=== PATIENT | male | born 1990 ===

== ENCOUNTER 2017-07-25 19:51 | Emergency (ER) | payer SELFPAY ==
[2017-07-25 19:51] VITALS: BMI 22.6
[2017-07-25 20:39] VITALS: BP 127/81; PULSE 77; RESP 16; TEMP 97.9; O2SAT 100
[2017-07-25] MEDS ORDERED: Oxycodone/Acetaminophen 5/325 mg Tab PO STA (21:14)
[2017-07-25] MEDS ORDERED: Oxycodone/Acetaminophen 5/325 mg Tab ONE (21:21)
--- NOTE | 2017-07-25 23:12 | CT ---
EXAM: CT Right Upper Extremity Without Intravenous Contrast, Wrist CLINICAL HISTORY: 26 years old, male; Injury or trauma; Fall; Initial encounter; Fracture, traumatic injury; Closed fracture; Wrist; Right; Bone fracture not specified; Additional info: Please eval wrist FX TECHNIQUE: Axial computed tomography images of the right wrist without intravenous contrast. All CT scans at this facility use one or more dose reduction techniques, viz.: automated exposure control; ma/kV adjustment per patient size (including targeted exams where dose is matched to indication; i.e. head); or iterative reconstruction technique. Coronal and sagittal reformatted images were created and reviewed. COMPARISON: No relevant prior studies available. FINDINGS: Bones/joints: A comminuted fracture of the distal radius is identified. This extends into the articular surface, and demonstrates moderate impaction. The carpal bones are intact, without acute fracture. Acute fracture of the ulnar styloid is present. Soft tissues: Overlying soft tissue swelling, as expected. IMPRESSION: Comminuted fracture of the distal radius extending into the articular surface with moderate impaction and overlying soft tissue swelling.
--- NOTE | 2017-07-26 00:22 | C.PDOC ---
History Of Present Illness 26 y/o male c/o pain to the right wrist s/p mechanical fall [employer] from skateboard. . Patient notes he fell with his hand outstretched off his skateboard. Patient took 400mg of Ibuprofen with no relief. Patient denies numbness, tingling, or weakness to the extremity. No head injury or LOC. denies neck pain. no left ar m or hand pain. Time Seen by Provider: 07/25/17 21:05 Chief Complaint (Nursing): Finger,Hand,&Wrist History Per: Patient History/Exam Limitations: no limitations Onset/Duration Of Symptoms: Mins Current Symptoms Are (Timing): Still Present Quality: "Pain" Severity: Mild Recent travel outside of the [place]: No Additional History Per: Patient Past Medical History Reviewed: Historical Data, Nursing Documentation, Vital Signs Vital Signs: Last Vital Signs Temp 97.9 F 07/25/17 20:34 Pulse 77 07/25/17 20:34 Resp 16 07/25/17 20:34 BP 127/81 07/25/17 20:34 Pulse Ox 100 07/27/17 03:13 - Medical History PMH: Asthma Denies: Chronic Kidney Disease Family History: States: Unknown Family Hx - Social History Hx Alcohol Use: Yes Hx Substance Use: No - Immunization History Hx Tetanus Toxoid Vaccination: No Review Of Systems Constitutional: Negative for: Other (Head injury) Musculoskeletal: Positive for: Hand Pain (right wrist) Neurological: Negative for: Weakness, Numbness, Other (LOC) Physical Exam - Physical Exam Appears: Non-toxic, No Acute Distress Skin: Warm, Dry Head: Atraumatic, Normacephalic Eye(s): bilateral: Normal Inspection, PERRL, EOMI Neck: Normal ROM, No Midline Cervical Tenderness Extremity: Tenderness (right distal forearm and wrist, left arm non tender with normal rom. ), Capillary Refill (<2secs), Deformity (right wrist), Swelling (right wrist) Pulses: Left Radial: Normal, Right Radial: Normal Neurological/Psych: Oriented x3, Normal Speech, Normal Cognition, Normal Motor, Normal Sensation ED Course And Treatment O2 Sat by Pulse Oximetry: 100 (RA) Pulse Ox Interpretation: Normal Orthopedic Time Performed: 23:40 Time Out: Side verified Procedure: Splint Type: Reverse (sugar tong) Location: Right, Arm Consent obtained: Verbal Performed by: Mid-level Provider (done by cp, checked by me) Diagnosis: Fracture Type: Comminuted Location: Right, Distal Bone: Radius Capillary refill: Normal Distal Sensation: Normal Distal Motor Function: Normal Capillary Refill: Normal Compartment: Normal Distal Sensation: Normal Distal Motor Function: Normal Patient tolerated procedure: Well Medical Decision Making Medical Decision Making: discussed with Dr Vizcarra around 945 pm; requests ct scan wrist, splint and sling ; he will contact patient tomorrow to arrange for follow up. Disposition Discussed With : Carmita Ramírez Doctor Will See Patient In The: Office Counseled Patient/Family Regarding: Studies Performed, Diagnosis, Need For Followup, Rx Given - Disposition Referrals: Carmita Ramírez MD [Staff Provider] - Disposition: HOME/ ROUTINE Disposition Time: 00:30 Condition: IMPROVED Additional Instructions: Keep arm in splint and sling and elevated- put pillows under arm in bed tonight. Do not get splint wet. Dr Ramírez should be in touch with you tomorrow ; or call his office (see number given) to arrange for follow up. Take ibuprofen 600 mg by mouth every 6 hours (with food) for pain. Take Percocet for severe pain. one pill every 4-6 hours. Return to ER for any worse symptoms. Prescriptions: Ibuprofen [Motrin] 600 mg PO TID #30 tab oxyCODONE/Acetaminophen [Percocet 5/325 mg Tab] 1 ea PO Q6 #8 tab Instructions: Wrist Fracture in Adults (ED), Splint Care (ED) Forms: [employer] (Anguillan), Work Excuse - Clinical Impression Clinical Impression: Distal radius fracture, right - Scribe Statement The provider has reviewed the documentation as recorded by the Sincereibroyal rene All medical record entries made by the Scribe were at my direction and personally dictated by me. I have reviewed the chart and agree that the record accurately reflects my personal performance of the history, physical exam, medical decision making, and the department course for this patient. I have also personally directed, reviewed, and agree with the discharge instructions and disposition.
[2017-07-26] MEDS ORDERED: Oxycodone/Acetaminophen 5/325 mg Tab PO STA (00:24)
[2017-07-26] MEDS ORDERED: Oxycodone/Acetaminophen 5/325 mg Tab ONE (00:29)
--- NOTE | 2017-07-26 08:46 | RAD ---
PROCEDURE: Right Wrist Radiographs. HISTORY: fall with deformity COMPARISON: None. FINDINGS: BONES: Comminuted intra-articular distal radial fracture with displacement of volar fragments. Minimally displaced ulnar styloid process fracture. JOINTS: Radiocarpal articulation maintained. Normal carpal alignment is maintained. SOFT TISSUES: Normal. OTHER FINDINGS: None. IMPRESSION: Comminuted displaced intra-articular distal radial fracture. Mildly displaced ulnar styloid process fracture.
== END 2017-07-26 00:45 | disposition home or self-care (01) ==
LOC: C.ER 19:51
DX: S52.591A Other fractures of lower end of right radius, initial encounter for closed fracture (principal); V00.131A Fall from skateboard, initial encounter; Y93.51 Activity, roller skating (inline) and skateboarding

== ENCOUNTER 2019-01-31 06:56 | Observation (INO) | payer MEDICAID, OTHER ==
[2019-01-31 06:56] VITALS: BMI 22.6
[2019-01-31] MEDS ORDERED: Magnesium Sulfate 1 gm in D5W 2 GM/200 ML BAG IVPB ONE (07:10)
[2019-01-31] MEDS ORDERED: Albuterol-Ipratrop 3 mg / 0.5 (3 ml) UD ONE ×4 (07:20→13:55)
[2019-01-31] MEDS ORDERED: Sodium Chloride 0.9% 1,000 ML IV ONE (07:29)
[2019-01-31 07:54] LABS: BASO # 0.1 K/uL (0.0-0.2); BASO % 0.8 % (0.0-2.0); EOS # 0.5 K/uL (0.0-0.7); EOS % 4.9 % (0.0-4.0); LYMPH # 5.5 K/uL (1.0-4.3); LYMPH % 56.8 % (20.0-40.0); MEAN CELL VOLUME 91.4 fL (80.0-94.0); MEAN CORPUSCULAR HEMOGLOBIN 31.3 pg (27.0-31.0); MEAN CORPUSCULAR HGB CONC 34.2 g/dL (33.0-37.0); MEAN PLATELET VOLUME 8.8 fL (7.2-11.7); MONO # 0.7 K/uL (0.0-0.8); MONO % 6.9 % (0.0-10.0); NEUT % 30.6 % (50.0-75.0); NRBC % 0.1 % (0.0-2.0); RBC 5.12 Mil/uL (4.40-5.90); RED CELL DISTRIBUTION WIDTH 12.8 % (11.5-14.5); WHITE BLOOD COUNT 9.7 K/uL (4.8-10.8)
--- NOTE | 2019-01-31 07:55 | C.PDOC ---
History Of Present Illness 28 y/o male,w/PMhx of asthma, presents to the ER for evaluation of shortness of breath. Patient was not able to talk initially when he arrived in ER. Patient was treated with Solu-Medrol and Magnesium before I assessed him. During my assessment, patient states that he has been sneezing and coughing for the past 2 weeks and he has been using inhaler more frequently for for the past 1 week. He notes that he ran out of his inhaler 1 hour [employer]. He was admitted in a hospital in [facility] 2 weeks ago when he went to see his mother.Denies having syncope,fever,chills,CP, nausea, vomiting, and hx of intubations. Chief Complaint (Nursing): Respiratory Distress History Per: Patient History/Exam Limitations: no limitations Onset/Duration Of Symptoms: Days Current Symptoms Are (Timing): Still Present Severity: Moderate Past Medical History Reviewed: Historical Data, Nursing Documentation, Vital Signs Vital Signs: Last Vital Signs Temp 97.1 F L 01/31/19 07:16 Pulse 93 H 01/31/19 07:16 Resp 27 H 01/31/19 07:16 BP 152/100 H 01/31/19 07:16 Pulse Ox 93 L 01/31/19 07:16 Primary Care Provider: FAMILY PROVIDER,NO - Medical History PMH: Asthma Denies: Chronic Kidney Disease Other Surgeries: Hx of surgeries Family History: States: No Known Family Hx - Social History Hx Alcohol Use: Yes Hx Substance Use: No - Immunization History Hx Tetanus Toxoid Vaccination: No Hx Influenza Vaccination: No Hx Pneumococcal Vaccination: No Review Of Systems Except As Marked, All Systems Reviewed And Found Negative. Constitutional: Negative for: Fever, Chills Cardiovascular: Negative for: Chest Pain Respiratory: Positive for: Cough, Shortness of Breath Gastrointestinal: Negative for: Nausea, Vomiting Physical Exam - Physical Exam Appears: Non-toxic, No Acute Distress, Other (speaking in full sentences) Skin: Normal Color, Warm, Dry Head: Atraumatic, Normacephalic Eye(s): bilateral: Normal Inspection Nose: Normal Oral Mucosa: Moist Throat: Normal, No Erythema, No Exudate Neck: Supple Chest: Symmetrical Cardiovascular: Rhythm Regular (with tachycardia) Respiratory: No Rales, No Rhonchi, Wheezing (diffuse expiratory wheezing), Other (good air entry) Gastrointestinal/Abdominal: Normal Exam, Soft, No Tenderness, No Guarding, No Rebound Neurological/Psych: Oriented x3, Normal Speech ED Course And Treatment - Laboratory Results Result Diagrams: 01/31/19 07:46 01/31/19 07:46 ECG: Interpreted By Me, Viewed By Me ECG Rhythm: Sinus Rhythm Interpretation Of ECG: NSR with normal intervals and normal axises Rate From EC O2 Sat by Pulse Oximetry: 93 (RA) Pulse Ox Interpretation: Other (Low) Medical Decision Making Medical Decision Making: Plan: --Labs --CXR --Duoneb --IV Fluids --Solu-Medrol IV --Magnesium Sulfate IV Updates: On re-evaluation, patient states that he is feeling better. On re-examination, patient still has diffuse wheezing. Disposition Counseled Patient/Family Regarding: Studies Performed, Diagnosis - Disposition Disposition: HOSPITALIZED Disposition Time: 10:08 Condition: FAIR Forms: [employer] [facility] (Omani) - Clinical Impression Clinical Impression: Exacerbation of asthma - Scribe Statement The provider has reviewed the documentation as recorded by the Ankita Valencia Provider Attestation: All medical record entries made by the Sincereibroyal were at my direction and personally dictated by me. I have reviewed the chart and agree that the record accurately reflects my personal performance of the history, physical exam, medical decision making, and the department course for this patient. I have also personally directed, reviewed, and agree with the discharge instructions and disposition.
[2019-01-31] MEDS: Albuterol-Ipratrop 3 mg / 0.5 (3 ml) UD IH SCH ×5 (08:00→12:02)
[2019-01-31] MEDS: Magnesium Sulfate 1 gm in D5W 1 GM/100 ML BAG IVPB SCH ×2 (08:04→08:05)
[2019-01-31 08:05] LABS: ALB/GLOB RATIO 1.4 (1.0-2.1); ALBUMIN 4.8 g/dL (3.5-5.0); BLOOD UREA NITROGEN 20 mg/dL (9-20); CALCIUM 8.9 mg/dl (8.6-10.4); GFR NON-AFRICAN AMERICAN > 60
[2019-01-31 08:19] LABS: ALT/SGPT 56 U/L (21-72); AST/SGOT 51 U/L (17-59)
--- NOTE | 2019-01-31 08:45 | RAD ---
Chest x-ray single frontal view HISTORY: Shortness of breath. Comparison: None available. Findings: No focal infiltrate or effusion. Heart size within normal limits. Impression: No focal infiltrate or effusion.
[2019-01-31] MEDS ORDERED: Sodium Chloride 0.9% 1,000 ML ONE (09:24)
[2019-01-31] MEDS ORDERED: Albuterol-Ipratrop 3 mg / 0.5 (3 ml) UD INH PRN (11:56)
[2019-01-31] MEDS ORDERED: Albuterol-Ipratrop 3 mg / 0.5 (3 ml) UD INH SCH (12:15)
--- NOTE | 2019-01-31 13:24 | CP.PCM.HP ---
History of Present Illness - History of Present Illness History of Present Illness: PGY-1 Medicine H&P for Dr. Krishnan CC: Shortness of breath HPI: Patient is a 28 year old male with a past medical history of asthma and season allergies who presents to the ED with shortness of breath. Patient states he spontaneously became short of breath this morning with associated chest tightness and wheezing. He states that he had run out of his rescue inhaler 1 hour prior to admission. Patient went to the emergency department 2 weeks ago for symptoms related to his allergies including sneezing and a dry cough. For the past 2 weeks, he has been using his rescue inhaler more often that usual. Previously he would use the inhaler around 2 times a day or none at all. Patient has had new exposure to his roommate's cat for the last 5 months. He denies sick contacts, recent illnesses, recent travels, or being intubated in the past. He further denies any fevers, chills, nausea, vomiting, chest pain, abdominal pain, constipation, diarrhea, or urinary symptoms. 12-point ROS reviewed and negative except mentioned in HPI. PMHx: Asthma, seasonal allergies, tobacco abuse PSH: Right wrist fracture repair after a skateboarding accident Allergies: Seasonal allergies Family History: Mother with breast cancer. Grandmother had brain aneurysms. Social History: Smokes 1-2 cigarettes once a week for 10 years, drink alcohol socially, denies illicit substances. Works at [employer]. Medications: Ventolin pump, albuterol nebulizer PMD: none Pharmacy: [facility] in [place] Present on Admission - Present on Admission Any Indicators Present on Admission: No History of DVT/PE: No History of Uncontrolled Diabetes: No Urinary Catheter: No Decubitus Ulcer Present: No Past Patient History - Past Social History Smoking Status: Current Some Days Smoker - CARDIAC Hx Cardiac Disorders: No - PULMONARY Hx Asthma: Yes - NEUROLOGICAL Hx Neurological Disorder: No - HEENT Hx HEENT Problems: No - RENAL Hx Chronic Kidney Disease: No - ENDOCRINE/METABOLIC Hx Endocrine Disorders: No - HEMATOLOGICAL/ONCOLOGICAL Hx Blood Disorders: No - INTEGUMENTARY Hx Dermatological Problems: No - MUSCULOSKELETAL/RHEUMATOLOGICAL Hx Musculoskeletal Disorders: No - GASTROINTESTINAL Hx Gastrointestinal Disorders: No - GENITOURINARY/GYNECOLOGICAL Hx Genitourinary Disorders: No - PSYCHIATRIC Hx Substance Use: No - SURGICAL HISTORY Hx Surgeries: Yes Hx Orthopedic Surgery: Yes (Rt. wrist fracture) - ANESTHESIA Hx Anesthesia: Yes Hx Anesthesia Reactions: No Meds Allergies/Adverse Reactions: Allergies Allergy/AdvReac Type Severity Reaction Status Date / Time No Known Allergies Allergy Verified 01/31/19 07:27 Physical Exam - Constitutional Appears: Well, Non-toxic, No Acute Distress - Head Exam Head Exam: ATRAUMATIC, NORMAL INSPECTION - Eye Exam Eye Exam: EOMI, Normal appearance Pupil Exam: NORMAL ACCOMODATION - ENT Exam ENT Exam: Mucous Membranes Moist - Neck Exam Neck exam: Positive for: Normal Inspection - Respiratory Exam Respiratory Exam: Clear to Auscultation Bilateral, NORMAL BREATHING PATTERN. absent: Accessory Muscle Use, Rales, Rhonchi, Wheezes, Respiratory Distress Additional comments: Patient speaking in full sentences - Cardiovascular Exam Cardiovascular Exam: REGULAR RHYTHM, +S1, +S2. absent: Bradycardia, Tachycardia, Gallop, Rubs, Systolic Murmur - GI/Abdominal Exam GI & Abdominal Exam: Normal Bowel Sounds, Soft. absent: Distended, Firm, Tenderness - Extremities Exam Extremities exam: Positive for: normal inspection. Negative for: calf tenderness, pedal edema - Back Exam Back exam: NORMAL INSPECTION - Neurological Exam Neurological exam: Alert, CN II-XII Intact, Oriented x3 - Psychiatric Exam Psychiatric exam: Normal Affect, Normal Mood - Skin Skin Exam: Dry, Intact, Normal Color, Warm Results - Vital Signs Recent Vital Signs: Last Vital Signs Temp 97.1 F L 01/31/19 07:16 Pulse 72 01/31/19 12:28 Resp 24 01/31/19 08:05 BP 121/70 01/31/19 12:28 Pulse Ox 95 01/31/19 12:28 - Labs Result Diagrams: 01/31/19 07:46 01/31/19 07:46 Labs: Laboratory Results - last 24 hr 01/31/19 01/31/19 07:46 07:46 WBC 9.7 RBC 5.12 Hgb 16.0 Hct 46.8 MCV 91.4 MCH 31.3 H MCHC 34.2 RDW 12.8 Plt Count 243 MPV 8.8 Neut % (Auto) 30.6 L Lymph % (Auto) 56.8 H Bonner % (Auto) 6.9 Eos % (Auto) 4.9 H Baso % (Auto) 0.8 Neut # (Auto) 3.0 Lymph # (Auto) 5.5 H Bonner # (Auto) 0.7 Eos # (Auto) 0.5 Baso # (Auto) 0.1 Sodium 143 Potassium 3.8 Chloride 104 Carbon Dioxide 22 Anion Gap 21 H BUN 20 Creatinine 0.9 Est GFR ( Amer) > 60 Est GFR (Non-Af Amer) > 60 Random Glucose 110 Calcium 8.9 Total Bilirubin 0.6 AST 51 ALT 56 Alkaline Phosphatase 157 H Total Protein 8.1 Albumin 4.8 Globulin 3.4 Albumin/Globulin Ratio 1.4 Assessment & Plan - Assessment and Plan (Free Text) Assessment: Patient is a 28 year old male with a past medical history of asthma and season allergies, admitted for asthma exacerbation. Plan: Asthma exacerbation with a history of mild intermittent asthma - CXR: no acute findings - EKG: NSR @ 89, no ST changes - Duonebs Q6 PRN - Albuterol neb. Q2H PRN - Solumedrol 40mg IV Q8 - Claritin 10mg PO QD - Pre-treatment peak flow: 100 - Post-treatment peak flow: 300 - Follow up Serum IgE level Seasonal allergies - Claritin 10mg PO QD - Follow up Serum IgE level Tobacco abuse - Nicoderm QD - Counselled on smoking cessation Prophylaxis: - DVT: SCD's - GI: Protonix 40mg PO QD Patient seen and case discussed with attending, Dr. Krishnan. Daniel Davis, PGY-1
[2019-01-31] MEDS ORDERED: Albuterol 0.083% Inhal Sol (2.5 mg/3 mL) UD INH PRN (13:28)
[2019-01-31] MEDS ORDERED: MethylPREDNISolone 40 mg Vial ONE (13:55)
[2019-01-31] MEDS: Pantoprazole 40 mg EC Tab PO SCH (13:56)
[2019-01-31] MEDS: MethylPREDNISolone 40 mg Vial IVP SCH ×2 (13:56→22:08)
[2019-01-31 14:19] VITALS: RESP 20
[2019-01-31] MEDS: Albuterol-Ipratrop 3 mg / 0.5 (3 ml) UD INH SCH (20:48)
[2019-02-01] MEDS: Albuterol-Ipratrop 3 mg / 0.5 (3 ml) UD INH SCH ×3 (01:00→13:06)
[2019-02-01] MEDS: MethylPREDNISolone 40 mg Vial IVP SCH (05:41)
[2019-02-01 07:34] VITALS: BP 100/78; PULSE 71; TEMP 97.8; O2SAT 96
[2019-02-01 07:38] LABS: RBC 4.55 Mil/uL (4.40-5.90); WHITE BLOOD COUNT 12.8 K/uL (4.8-10.8)
[2019-02-01 07:39] LABS: BASO % 0.1 % (0.0-2.0); LYMPH % 7.7 % (20.0-40.0); MEAN CELL VOLUME 90.5 fL (80.0-94.0); MEAN CORPUSCULAR HEMOGLOBIN 29.9 pg (27.0-31.0); MEAN CORPUSCULAR HGB CONC 33.1 g/dL (33.0-37.0); MEAN PLATELET VOLUME 8.2 fL (7.2-11.7); MONO # 0.3 K/uL (0.0-0.8); MONO % 2.7 % (0.0-10.0); NEUT # 11.5 K/uL (1.8-7.0); NEUT % 89.5 % (50.0-75.0); PLATELET COUNT 166 K/uL (130-400); RED CELL DISTRIBUTION WIDTH 13.1 % (11.5-14.5)
[2019-02-01 07:45] LABS: HEMOGLOBIN 13.6 g/dL (12.0-18.0)
[2019-02-01 08:00] LABS: ALB/GLOB RATIO 1.5 (1.0-2.1); ALT/SGPT 49 U/L (21-72); AST/SGOT 27 U/L (17-59); BLOOD UREA NITROGEN 14 mg/dL (9-20); CALCIUM 8.6 mg/dl (8.6-10.4); GFR NON-AFRICAN AMERICAN > 60
[2019-02-01 08:43] LABS: BANDS 6 % (0-2); LYMPHOCYTE 5 % (20-40); MONOCYTE 1 % (0-10); NEUTROPHIL 87 % (50-75); PLATELET ESTIMATE NORMAL (NORMAL); REACTIVE LYMPHOCYTES 1 % (0-0); TOTAL CELLS COUNTED 100
[2019-02-01 08:44] LABS: POIKILOCYTOSIS SLIGHT
[2019-02-01] MEDS: Pantoprazole 40 mg EC Tab PO SCH (09:49)
--- NOTE | 2019-02-01 10:12 | CP.PCM.DIS ---
Provider - Provider Date of Admission: 01/31/19 10:08 Attending physician: Jaimie Gonzalez MD Time Spent in preparation of Discharge (in minutes): 45 Diagnosis - Discharge Diagnosis (1) Exacerbation of asthma Status: Resolved (2) Shortness of breath Status: Resolved (3) Tobacco abuse counseling Status: Resolved Hospital Course - Lab Results Lab Results: Most Recent Lab Values WBC 12.8 K/uL (4.8-10.8) H 02/01/19 07:26 RBC 4.55 Mil/uL (4.40-5.90) 02/01/19 07:26 Hgb 13.6 g/dL (12.0-18.0) D 02/01/19 07:26 Hct 41.2 % (35.0-51.0) 02/01/19 07:26 MCV 90.5 fL (80.0-94.0) 02/01/19 07:26 MCH 29.9 pg (27.0-31.0) 02/01/19 07:26 MCHC 33.1 g/dL (33.0-37.0) 02/01/19 07:26 RDW 13.1 % (11.5-14.5) 02/01/19 07:26 Plt Count 166 K/uL (130-400) 02/01/19 07:26 MPV 8.2 fL (7.2-11.7) 02/01/19 07:26 Neut % (Auto) 89.5 % (50.0-75.0) H 02/01/19 07:26 Lymph % (Auto) 7.7 % (20.0-40.0) L 02/01/19 07:26 Vigo % (Auto) 2.7 % (0.0-10.0) 02/01/19 07:26 Eos % (Auto) 0.0 % (0.0-4.0) 02/01/19 07:26 Baso % (Auto) 0.1 % (0.0-2.0) 02/01/19 07:26 Neut # (Auto) 11.5 K/uL (1.8-7.0) H 02/01/19 07:26 Lymph # (Auto) 1.0 K/uL (1.0-4.3) 02/01/19 07:26 Vigo # (Auto) 0.3 K/uL (0.0-0.8) 02/01/19 07:26 Eos # (Auto) 0.0 K/uL (0.0-0.7) 02/01/19 07:26 Baso # (Auto) 0.0 K/uL (0.0-0.2) 02/01/19 07:26 Neutrophils % (Manual) 87 % (50-75) H 02/01/19 07:26 Band Neutrophils % 6 % (0-2) H 02/01/19 07:26 Lymphocytes % (Manual) 5 % (20-40) L 02/01/19 07:26 Reactive Lymphs % 1 % (0-0) H 02/01/19 07:26 Monocytes % (Manual) 1 % (0-10) 02/01/19 07:26 Platelet Estimate Normal (NORMAL) 02/01/19 07:26 Poikilocytosis (manual Slight 02/01/19 07:26 Sodium 138 mmol/L (132-148) 02/01/19 07:26 Potassium 4.2 mmol/L (3.6-5.2) 02/01/19 07:26 Chloride 105 mmol/L (98-107) 02/01/19 07:26 Carbon Dioxide 21 mmol/L (22-30) L 02/01/19 07:26 Anion Gap 16 (10-20) 02/01/19 07:26 BUN 14 mg/dL (9-20) 02/01/19 07:26 Creatinine 0.6 mg/dL (0.8-1.5) L 02/01/19 07:26 Est GFR ( Amer) > 60 02/01/19 07:26 Est GFR (Non-Af Amer) > 60 02/01/19 07:26 Random Glucose 140 mg/dL (75-110) H D 02/01/19 07:26 Calcium 8.6 mg/dl (8.6-10.4) 02/01/19 07:26 Phosphorus 3.6 mg/dL (2.5-4.5) 02/01/19 07:26 Magnesium 2.2 mg/dL (1.6-2.3) 02/01/19 07:26 Total Bilirubin 0.3 mg/dL (0.2-1.3) 02/01/19 07:26 AST 27 U/L (17-59) 02/01/19 07:26 ALT 49 U/L (21-72) 02/01/19 07:26 Alkaline Phosphatase 100 U/L (38-126) 02/01/19 07:26 Total Protein 6.6 g/dL (6.3-8.3) 02/01/19 07:26 Albumin 4.0 g/dL (3.5-5.0) 02/01/19 07:26 Globulin 2.6 gm/dL (2.2-3.9) 02/01/19 07:26 Albumin/Globulin Ratio 1.5 (1.0-2.1) 02/01/19 07:26 - Hospital Course Hospital Course: Patient is a 28 year old male with a past medical history of asthma and season allergies who presents to the ED with shortness of breath. Patient states he spontaneously became short of breath this morning with associated chest tightness and wheezing. He states that he had run out of his rescue inhaler 1 hour prior to admission. During the course of his hospital stay, CXR showed no acute findings. EKG showed NSR @ 89, no ST changes. Patient was treated with Duonebs, Albuterol nebulizer, Solumedrol, Claritin, and protonix. Patient was counselled on smoking cessation repeatedly. He was instructed to follow up at [facility] as he does not have a PMD. Patient was instructed to take 5 more days of prednisone and start taking claritin daily. Patient is medically optimized for discharge. Discharge Exam - Additional Findings Additional findings: - Constitutional Appears: Well, Non-toxic, No Acute Distress - Head Exam Head Exam: ATRAUMATIC, NORMAL INSPECTION - Eye Exam Eye Exam: EOMI, Normal appearance Pupil Exam: NORMAL ACCOMODATION - ENT Exam ENT Exam: Mucous Membranes Moist - Neck Exam Neck exam: Positive for: Normal Inspection - Respiratory Exam Respiratory Exam: Clear to Auscultation Bilateral, NORMAL BREATHING PATTERN. absent: Accessory Muscle Use, Rales, Rhonchi, Wheezes, Respiratory Distress Additional comments: Patient speaking in full sentences - Cardiovascular Exam Cardiovascular Exam: REGULAR RHYTHM, +S1, +S2. absent: Bradycardia, Tachycardia, Gallop, Rubs, Systolic Murmur - GI/Abdominal Exam GI & Abdominal Exam: Normal Bowel Sounds, Soft. absent: Distended, Firm, Tenderness - Extremities Exam Extremities exam: Positive for: normal inspection. Negative for: calf tenderness, pedal edema - Back Exam Back exam: NORMAL INSPECTION - Neurological Exam Neurological exam: Alert, CN II-XII Intact, Oriented x3 - Psychiatric Exam Psychiatric exam: Normal Affect, Normal Mood - Skin Skin Exam: Dry, Intact, Normal Color, Warm Discharge Plan - Discharge Medications Prescriptions: predniSONE [Prednisone] 40 mg PO DAILY #5 tab - Follow Up Plan Condition: FAIR Disposition: HOME/ ROUTINE Additional Instructions: - Take Prednisone 5mg once daily for 5 more days. - Take Claritin or Zyrtec daily for your allergies. - Continue to use your home Ventolin inhaler and albuterol nebulizer treatments as needed. - Follow up at [facility] within 1 week of discharge. You will need a referral to see an loan consultant for an allergy test. - Stop smoking as we have discussed as smoking will worsen your asthma. - Return to the emergency room for worsening or newly concerning symptoms. Referrals: [facility] [Outside]
[2019-02-01] MEDS ORDERED: MethylPREDNISolone 40 mg Vial IVP SCH (17:00)
[2019-02-02] MEDS ORDERED: Pneumococcal 23-Valent Vaccine IM ONE (10:00)
== END 2019-02-01 14:42 | disposition home or self-care (01) ==
LOC: C.ER 06:56 → C.9E 10:08 → C.3T 13:52
PROVIDERS: ADMIT Internal Medicine; ATTEND Internal Medicine
DX: J45.901 Unspecified asthma with (acute) exacerbation (principal); F17.210 Nicotine dependence, cigarettes, uncomplicated; Z80.3 Family history of malignant neoplasm of breast
CPT/HCPCS: 36415; 71045; 80053; 83735; 84100; 85025; 94150; 94640; 96365; 96374; 99284; G0378; J2920; J2930; J3475; J7030